=== PATIENT | female | born 1970 | race Caucasian/White ===

== ENCOUNTER 2019-05-03 13:33 | Emergency (ER) | payer SELFPAY ==
[~2019-05-03] VITALS: Ht 162.5 cm; Wt 70.3 kg
[2019-05-03] MEDS ORDERED: Tobrex Ophth S2.5 ML OPH (14:17)
[2019-05-03] MEDS ORDERED: ACULAR 0.5%3 ML OPH (14:17)
== END 2019-05-03 14:53 | disposition home or self-care (01) ==
LOC: ED 13:33
DX: S05.02XA Injury of conjunctiva and corneal abrasion without foreign body, left eye, initial encounter (principal); F17.200 Nicotine dependence, unspecified, uncomplicated; X58.XXXA Exposure to other specified factors, initial encounter; Y93.89 Activity, other specified; Y92.89 Other specified places as the place of occurrence of the external cause; Y99.8 Other external cause status

== ENCOUNTER 2019-05-12 16:19 | Emergency (ER) | payer SELFPAY ==
[~2019-05-12] VITALS: Ht 162.5 cm; Wt 70.3 kg
[~2019-05-12 16:19] MED LIST: ACULAR 0.5%3 ML OPH; Tobrex Ophth S2.5 ML OPH
[2019-05-12] MEDS ORDERED: AMOXICILLIN500 M2 PO (16:34)
[2019-05-12] MEDS ORDERED: CIPRODEX 0.3%-7.5 ML OT (16:34)
== END 2019-05-12 16:25 | disposition home or self-care (01) ==
LOC: ED 16:19
DX: H65.91 Unspecified nonsuppurative otitis media, right ear (principal); Z79.2 Long term (current) use of antibiotics

== ENCOUNTER 2023-05-10 07:12 | Emergency (ER) | payer BC ==
[~2023-05-10] VITALS: Ht 165.1 cm; Wt 68.0 kg
[~2023-05-10 07:12] MED LIST changes: +AMOXICILLIN500 M2 PO; +CIPRODEX 0.3%-7.5 ML OT
[2023-05-10] MEDS ORDERED: BRILINTA90 M1 PO (07:23)
[2023-05-10] MEDS ORDERED: ROPINIROLE HYD0.5 MG PO (07:24)
[2023-05-10] MEDS ORDERED: LOSARTAN POTASS25 M1 PO (07:24)
[2023-05-10] MEDS ORDERED: ATORVASTATIN CA80 M1 PO (07:24)
[2023-05-10] MEDS ORDERED: CARVEDILOL12.5 MG PO (07:24)
[2023-05-10 07:44] LABS: BASO % 0.3 % (0.0-1.0); EOS # 0.2 10*3/uL (0.0-0.4); EOS % 3.4 % (1.0-4.0); HEMATOCRIT 32.8 % (37.0-47.0); LYMPH # 2.1 10*3/uL (1.3-4.4); LYMPH % 34.3 % (27.0-41.0); MEAN CORPUSCULAR HGB 25.4 pg (27.0-31.0); MEAN CORPUSCULAR HGB CONC 31.4 g/dl (33.0-37.0); MEAN PLATELET VOLUME 9.1 fl (9.6-12.3); MONO # 0.5 10*3/uL (0.1-1.0); MONO % 7.6 % (3.0-9.0); NEUT # 3.3 10*3/uL (2.3-7.9); NEUT % 54.2 % (47.0-73.0); PLATELET COUNT AUTOMATED 311 10*3/uL (130-400); RED BLOOD COUNT 4.05 10*6/uL (4.10-5.10); RED CELL DISTRI WIDTH 19.6 % (0-14.5); WHITE BLOOD COUNT 6.2 10*3/uL (4.8-10.8)
[2023-05-10 08:03] LABS: ACT PARTIAL THROMBO TIME 23.4 SECONDS (20.0-32.1)
[2023-05-10 08:08] LABS: ALKALINE PHOSPHATASE 118 U/L (46-116); BUN 8 mg/dl (9-23); CHLORIDE 108 mmol/L (98-107); LIPASE 42 U/L (12-53); POTASSIUM 3.4 mmol/L (3.4-5.1); SGPT/ALT 12 U/L (10-49); TOTAL PROTEIN 6.6 gm/dL (6.0-8.0)
== END 2023-05-10 11:22 | disposition left against medical advice (07) ==
LOC: ED 07:12
PROVIDERS: Emergency Medicine
DX: R55 Syncope and collapse (principal); R42 Dizziness and giddiness

== ENCOUNTER 2023-06-16 09:17 | Emergency (ER) | payer BC ==
[~2023-06-16] VITALS: Ht 162.5 cm; Wt 68.0 kg
[~2023-06-16 09:17] MED LIST changes: +ATORVASTATIN CA80 M1 PO; +BRILINTA90 M1 PO; +CARVEDILOL12.5 MG PO; +LOSARTAN POTASS25 M1 PO; +ROPINIROLE HYD0.5 MG PO
[2023-06-16] MEDS ORDERED: ASPIRIN ADULT L81 M2 PO (09:52)
[2023-06-16 10:00] LABS: BASO % 0.4 % (0.0-1.0); EOS # 0.2 10*3/uL (0.0-0.4); EOS % 2.3 % (1.0-4.0); HEMATOCRIT 32.8 % (37.0-47.0); LYMPH # 1.8 10*3/uL (1.3-4.4); LYMPH % 19.8 % (27.0-41.0); MEAN CELL VOLUME 79.4 fl (81.0-99.0); MEAN CORPUSCULAR HGB 25.7 pg (27.0-31.0); MEAN CORPUSCULAR HGB CONC 32.3 g/dl (33.0-37.0); MEAN PLATELET VOLUME 9.3 fl (9.6-12.3); MONO # 0.7 10*3/uL (0.1-1.0); MONO % 7.7 % (3.0-9.0); NEUT # 6.2 10*3/uL (2.3-7.9); NEUT % 69.6 % (47.0-73.0); PLATELET COUNT AUTOMATED 336 10*3/uL (130-400); RED BLOOD COUNT 4.13 10*6/uL (4.10-5.10); RED CELL DISTRI WIDTH 18.6 % (0-14.5)
[2023-06-16 10:10] LABS: ACT PARTIAL THROMBO TIME 26.5 SECONDS (20.0-32.1)
[2023-06-16 10:31] LABS: ALKALINE PHOSPHATASE 122 U/L (46-116); BUN 7 mg/dl (9-23); CHLORIDE 106 mmol/L (98-107); LIPASE 44 U/L (12-53); POTASSIUM 3.9 mmol/L (3.4-5.1); SGPT/ALT 18 U/L (10-49); TOTAL PROTEIN 7.2 gm/dL (6.0-8.0)
[2023-06-16] MEDS ORDERED: ZITHROMAX250 MG PO (12:00)
== END 2023-06-16 12:04 | disposition home or self-care (01) ==
LOC: ED 09:17
PROVIDERS: Emergency Medicine
DX: J20.9 Acute bronchitis, unspecified (principal)

== ENCOUNTER → 2023-10-01 | Outpatient (CLI) | payer BC ==
[~2023-10-01] MED LIST changes: +ASPIRIN ADULT L81 M2 PO; +ZITHROMAX250 MG PO
[2023-10-01 08:39] LABS: BASO % 0.2 % (0.0-1.0); EOS # 0.1 10*3/uL (0.0-0.4); EOS % 0.6 % (1.0-4.0); HEMATOCRIT 32.7 % (37.0-47.0); LYMPH # 2.5 10*3/uL (1.3-4.4); LYMPH % 26.4 % (27.0-41.0); MEAN CELL VOLUME 79.8 fl (81.0-99.0); MEAN CORPUSCULAR HGB 24.6 pg (27.0-31.0); MEAN CORPUSCULAR HGB CONC 30.9 g/dl (33.0-37.0); MONO # 0.5 10*3/uL (0.1-1.0); MONO % 5.4 % (3.0-9.0); NEUT # 6.3 10*3/uL (2.3-7.9); NEUT % 67.1 % (47.0-73.0); PLATELET COUNT AUTOMATED 353 10*3/uL (130-400); RED CELL DISTRI WIDTH 19.1 % (0-14.5); WHITE BLOOD COUNT 9.4 10*3/uL (4.8-10.8)
[2023-10-01 09:04] LABS: BUN 11 mg/dl (9-23); CHLORIDE 107 mmol/L (98-107); CHOLESTEROL 130 mg/dL (<200); LDL CHOLESTEROL 71 mg/dL (9-159); POTASSIUM 4.1 mmol/L (3.4-5.1); TRIGLYCERIDES 80 mg/dl (<150)
== END | disposition home or self-care (01) ==
LOC: LAB 08:17 → US 16:00
PROVIDERS: ATTEND Nurse Practitioner
DX: I25.118 Atherosclerotic heart disease of native coronary artery with other forms of angina pectoris (principal); E78.00 Pure hypercholesterolemia, unspecified; M79.671 Pain in right foot; I10 Essential (primary) hypertension; E55.9 Vitamin D deficiency, unspecified; E04.1 Nontoxic single thyroid nodule

== ENCOUNTER 2023-10-28 06:57 | Emergency (ER) | payer BC ==
[~2023-10-28] VITALS: Ht 162.5 cm; Wt 68.0 kg
[2023-10-28 07:42] LABS: BASO % 0.5 % (0.0-1.0); EOS # 0.1 10*3/uL (0.0-0.4); EOS % 1.6 % (1.0-4.0); HEMATOCRIT 30.9 % (37.0-47.0); LYMPH # 1.7 10*3/uL (1.3-4.4); MEAN CELL VOLUME 77.8 fl (81.0-99.0); MEAN CORPUSCULAR HGB 24.9 pg (27.0-31.0); MEAN PLATELET VOLUME 9.1 fl (9.6-12.3); MONO # 0.4 10*3/uL (0.1-1.0); MONO % 6.9 % (3.0-9.0); NEUT # 4.2 10*3/uL (2.3-7.9); NEUT % 64.8 % (47.0-73.0); PLATELET COUNT AUTOMATED 347 10*3/uL (130-400); RED BLOOD COUNT 3.97 10*6/uL (4.10-5.10); RED CELL DISTRI WIDTH 18.8 % (0-14.5); WHITE BLOOD COUNT 6.4 10*3/uL (4.8-10.8)
[2023-10-28 07:55] LABS: ACT PARTIAL THROMBO TIME 24.5 SECONDS (20.0-32.1)
[2023-10-28 08:03] LABS: ALKALINE PHOSPHATASE 100 U/L (46-116); BUN 11 mg/dl (9-23); CHLORIDE 110 mmol/L (98-107); LIPASE 44 U/L (12-53); SGPT/ALT 13 U/L (5-49); TOTAL PROTEIN 6.6 gm/dL (6.0-8.0)
== END 2023-10-28 10:00 | disposition home or self-care (01) ==
LOC: ED 06:57
PROVIDERS: Emergency Medicine
DX: I10 Essential (primary) hypertension (principal); R42 Dizziness and giddiness; R10.2 Pelvic and perineal pain; Z88.8 Allergy status to other drugs, medicaments and biological substances

== ENCOUNTER → 2024-03-23 | Outpatient (CLI) | payer BC ==
[2024-03-23 10:49] LABS: HEMATOCRIT 29.8 % (37.0-47.0); MEAN CORPUSCULAR HGB 23.9 pg (27.0-31.0); MEAN CORPUSCULAR HGB CONC 30.2 g/dl (33.0-37.0); MEAN PLATELET VOLUME 9.2 fl (9.6-12.3); RED BLOOD COUNT 3.77 10*6/uL (4.10-5.10); RED CELL DISTRI WIDTH 20.7 % (0-14.5); WHITE BLOOD COUNT 6.7 10*3/uL (4.8-10.8)
[2024-03-23 11:09] LABS: CHOLESTEROL 115 mg/dL (<200); LDL CHOLESTEROL 60 mg/dL (9-159); TRIGLYCERIDES 65 mg/dl (<150)
== END | disposition home or self-care (01) ==
LOC: LAB 10:25
PROVIDERS: Nurse Practitioner Family; ATTEND Internal Medicine Cardiovascular Disease
DX: I25.10 Atherosclerotic heart disease of native coronary artery without angina pectoris (principal); R53.83 Other fatigue; R07.9 Chest pain, unspecified; R06.09 Other forms of dyspnea; E78.5 Hyperlipidemia, unspecified